=== PATIENT | female | born 1955 | race Caucasian/White ===

== ENCOUNTER 2025-02-18 16:55 | Emergency (ER) | payer OTHER ==
--- OUTSIDE RECORDS SUMMARY | 2025-02-18 16:58 | XMS REPORT | Continuity of Care Document ---
Author Name Unknown Address [address] [facility] [address] [place] [address] [facility] Address [address] [facility] [address] [place] [address] Care Team Providers Care Java Portal Developer Name Role Phone PCP, PATIENT DOES NOT HAVE A Primary Care Physic cyndie Unavailable Janene Stafford Attending Clinician Unavailable Sebastian Mccrary Attending Clinician Unavailable Payers Payer Name Policy Type Policy Number Effective Date [place]pir[id number] 2020 00:00:00 CIGNA C1 [id number] [facility] CIGNA C1 [id number] 2019 00:00:00 [facility] Problems Condition Name Condition Details Condition Category Status Onset Date Resolution Date Last Treatment Date Treating Clinician Comments Source Seasonal allergic rhinitis Allergic rhinitis, seasonal Problem Active [facility] Obesity Obesity, unspecifie d Problem Active [facility] Benign hypertensi on Benign hypertensi on Problem Active [facility] Hyperlipid emia Hyperlipid emia Problem Active [facility] [id number] Vaginal dryness Problem Active [facility] Anxiety Anxiety Problem Active [facility] [id number] Chronic fatigue Problem Active [facility] Allergies, Adverse Reactions, Alerts Allergy Name Allergy Type Status Severity Reaction(s) Onset Date Inactive Date Treating Clinician Comments Source 0 Drug allergy Active Unknown [facility] NO KNOWN ALLERGIE S Drug Class Active [facility] Social History Social Habit Start Date Stop Date Quantity Comments Source History of Tobacco Use [facility] Sex Assigned At [facility] Smoking Status Start Date Stop Date Source Never Smoker [facility] Medications Ordered Medication Name Filled Medication Name Start Date Stop Date Current Medication? Ordering Clinician Indication Dosage Frequency Signature (SIG) Comments Components Source Simvastatin 20 MG Simvastatin 20 MG 8-31 00:00: 00 No 1{table t_in_th e_eveni ng} QD Simvastati n 20 MG Lisinopril- Hydrochloro thiazide 20-25 MG Lisinopril- Hydrochloro thiazide 20-25 MG 3- 00:00: 00 No 1{table t} QD Lisinopril -Hydrochlo rothiazide 20-25 MG Cyanocobala min 1000 MCG/ML Cyanocobala min 1000 MCG/ML 3 00:00: 00 04-13 00:00 :00 No 1{ml} Cyanocobal santiago 1000 MCG/ML Cetaphil Moisturizin g - Cetaphil Moisturizin g - 06-02 00:00: 00 08-01 00:00 :00 No Cetaphil Moisturizi ng - Nystatin-Tr iamcinolone 970237-2.1 UNIT/GM Nystatin-Tr iamcinolone 002182-6.1 UNIT/GM 06-02 00:00: 00 08-01 00:00 :00 No 1{appli cation} BID Nystatin-T riamcinolo ne 992277-0.1 UNIT/GM Cetaphil Moisturizin g - Cetaphil Moisturizin g - 06-02 00:00: 00 08-01 00:00 :00 No Cetaphil Moisturizi ng - Nystatin-Tr iamcinolone 060004-2.1 UNIT/GM Nystatin-Tr iamcinolone [id number] UNIT/GM - 00:00: 00 08-01 00:00 :00 No 1{appli cation} BID Nystatin-T riamcinolo ne 727874-0.1 UNIT/GM Simvastatin 10 MG Simvastatin 10 MG 2019-05 0 00:00: 00 No 1{table t_in_th e_eveni ng} QD Simvastati n 10 MG Simvastatin 10 MG Simvastatin 10 MG 2019-05 0 00:00: 00 No 1{table t_in_th e_eveni ng} QD Simvastati n 10 MG Voltaren Voltaren 12-18 00:00: 00 02-16 00:00 :00 No Arvin Crooks as directed [facility] Flonase Flonase 2018-05 00:00: 00 Yes Arvin Crooks 2 sprays in each nostril [facility] Claritin-D 12 Hour Claritin-D 12 Hour Yes Arvin Crooks 1 tablet as needed [facility] Zestoretic Zestoretic Yes Arvin Crooks 1 tablet [facility] Metoprolol Tartrate Metoprolol Tartrate Yes Arvin Crooks 1 tablet with food [facility] Cortisporin Cortisporin Yes Arvin Magda Crooks 1 applicatio n to affected area [facility] Synthroid Synthroid Yes Arvin Crooks 1 tablet on an empty stomach in the morning [facility] Sertraline HCl Sertraline HCl Yes Arvin Crooks 1 tablet [facility] Hydrochloro thiazide Hydrochloro thiazide Yes Arvin Crooks 1 tablet in the morning [facility] Phentermine HCl Phentermine HCl Yes Arvin Crooks 1 capsule [facility] Hydrochloro thiazide 25 MG Hydrochloro thiazide 25 MG No 1{table t_in_th e_morni ng} QD Hydrochlor othiazide 25 MG Cyanocobala min 1000 MCG/ML Cyanocobala min 1000 MCG/ML No Cyanocobal santiago 1000 MCG/ML Sertraline HCl 50 MG Sertraline HCl 50 MG No 1.5{tab let} QD Sertraline HCl 50 MG Voltaren 1 % Voltaren 1 % No QID Voltaren 1 % Hydrochloro thiazide 12.5 MG Hydrochloro thiazide 12.5 MG No 1{table t_in_ e_morni ng} QD Hydrochlor othiazide 12.5 MG Sertraline HCl 50 MG Sertraline HCl 50 MG No 1{table t} QD Sertraline HCl 50 MG Hydrochloro thiazide 25 MG Hydrochloro thiazide 25 MG No 1{table t_in_ e_morni ng} QD Hydrochlor othiazide 25 MG Vital Signs Vital Name Observation Time Observation Value Comments S ource blood pressure diastolic 2021-01-12 11:40:00 68 mm[Hg] [facility] height 2021-01-12 11:40:00 59 [in_i] Commo n [facility] weight 2021-01-12 11:40:00 139.8 [lb_av] Co [facility] temperature 2021-01-12 11:40:00 98.0 [degF] Com [facility] bmi 2021-01-12 11:40:00 28.23 kg/m2 Comm on [facility] oximetry 2021-01-12 11:40:00 97 % Commo n [facility] respiratory rate 2021-01-12 11:40:00 18 /min [facility] blood pressure systolic 2021-01-12 11:40:00 104 mm[Hg] Common [facility] height 2020-09-28 14:20:00 59 [in_i] Commo n [facility] weight 2020-09-28 14:20:00 146.2 [lb_av] Co [facility] temperature 2020-09-28 14:20:00 97.6 [degF] Com [facility] bmi 2020-09-28 14:20:00 29.53 kg/m2 Comm on [facility] oximetry 2020-09-28 14:20:00 96 % Commo n [facility] respiratory rate 2020-09-28 14:20:00 20 /min Common [facility] blood pressure systolic 2020-09-28 14:20:00 110 mm[Hg] [facility] blood pressure diastolic 2020-09-28 14:20:00 77 mm[Hg] Common [facility] height 2020-08-26 10:40:00 59 [in_i] Commo n [facility] weight 2020-08-26 10:40:00 145 [lb_av] Comm on [facility] bmi 2020-08-26 10:40:00 29.28 kg/m2 Comm on [facility] height 2020-07-17 11:00:00 59 [in_i] Commo n [facility] weight 2020-07-17 11:00:00 147.4 [facility]lb[facility]av[facility] 2020-07-17 11:00:00 98.0 [degF] Com [facility] bmi 2020-07-17 11:00:00 29.77 kg/m2 Comm on [facility] oximetry 2020-07-17 11:00:00 96 % Commo n [facility] respiratory rate 2020-07-17 11:00:00 16 /min [facility] blood pressure systolic 2020-07-17 11:00:00 140 mm[Hg] [facility] blood pressure diastolic 2020-07-17 11:00:00 86 mm[Hg] Common [facility] height 2020-06-02 11:00:00 59 [in_i] Commo n [facility] weight 2020-06-02 11:00:00 147.4 [lb_av] Co [facility] temperature 2020-06-02 11:00:00 98.3 [degF] Com [facility] bmi 2020-06-02 11:00:00 29.77 kg/m2 Comm on [facility] oximetry 2020-06-02 11:00:00 94 % Commo n [facility] respiratory rate 2020-06-02 11:00:00 16 /min Common [facility] blood pressure systolic 2020-06-02 11:00:00 140 mm[Hg] [facility] blood pressure diastolic 2020-06-02 11:00:00 84 mm[Hg] [facility] height 2020-02-06 10:00:00 59 [in_i] Commo n [facility] weight 2020-02-06 10:00:00 148.4 [lb_av] Co mmon [facility] temperature 2020-02-06 10:00:00 97.1 [degF] Com mon [facility] bmi 2020-02-06 10:00:00 29.97 kg/m2 Comm on [facility] oximetry 2020-02-06 10:00:00 98 % Commo n [facility] respiratory rate 2020-02-06 10:00:00 16 /min [facility] blood pressure systolic 2020-02-06 10:00:00 138 mm[Hg] [facility] blood pressure diastolic 2020-02-06 10:00:00 91 mm[Hg] [facility] Encounters Start Date/Time End Date/Time Encounter Type Admission Type Attending Clinicians Care Facility Care Department Encounter ID Source 2022-01-06 15:09:00 Outpatient Janene Stafford [facility] [id number] [facility] 2021-07-08 09:16:00 [place]patient [place] [facility] [id number] [facility] 2021-06-02 12:24:36 Outpatient Janene Stafford [facility] [id number] [facility] 2021-06-02 12:15:51 Outpatient [facility] [id number] [facility] 2021-06-02 11:37:14 Outpatient Sebastian Mccrary [facility] [id number] [facility] 2025-02-16 11:13:00 2025-02-16 12:11:00 Emergency X [facility] ERT [id number] [facility] 2021-01-12 00:00:00 2021-01-12 00:00:00 OFFICE VISIT EST PT LEVEL 3 [facility] [id number] [facility] 2020-12-31 00:00:00 2020-12-31 00:00:00 (TEL) [facility] [id number] [facility] 2020-12-30 00:00:00 2020-12-30 00:00:00 (TEL) [facility] [id number] [facility] 2020-09-28 00:00:00 2020-09-28 00:00:00 OFFICE VISIT EST PT LEVEL 3 [facility] [id number] [facility] 2020-09-04 00:00:00 2020-09-04 00:00:00 (TEL) [facility] [id number] [facility] 2020-08-31 00:00:00 2020-08-31 00:00:00 (TEL) [facility] [id number] [facility] 2020-08-26 00:00:00 2020-08-26 00:00:00 OFFICE VISIT EST PT LEVEL 3 [facility] [id number] [facility] 2020-07-17 00:00:00 2020-07-17 00:00:00 OFFICE VISIT EST PT LEVEL 3 [facility] [id number] [facility] 2020-06-02 00:00:00 2020-06-02 00:00:00 OFFICE VISIT ESTAB PT LEVEL 4 [facility] [id number] [facility] 2020-06-02 00:00:00 2020-06-02 00:00:00 (TEL) [facility] [id number] [facility] 2020-02-06 00:00:00 2020-02-06 00:00:00 OFFICE VISIT EST PT LEVEL 3 [facility] [id number] [facility] 2019-12-27 16:03:00 2019-12-27 16:03:00 Outpatient [facility] [id number] [facility] 2019-12-19 09:00:00 2019-12-19 09:00:00 Outpatient [facility] [id number] [facility] 2019-03-07 11:20:00 2019-03-07 11:20:00 Outpatient [facility] [id number] [facility]
[2025-02-18] MEDS ORDERED: HYDROCODONE/APAP 7.5/325 MG TAB ONE (17:25)
--- NOTE | 2025-02-18 18:05 | RAD REPORT ---
Procedure: Chest Single View HISTORY: Chest pain COMPARISON: none FINDINGS: The lungs appear clear of acute infiltrate. No significant pleural effusion noted. The heart is normal size. IMPRESSION: No acute abnormality is displayed.
--- NOTE | 2025-02-18 18:06 | RAD REPORT ---
EXAM:Ribs Right CLINICAL HISTORY: Right rib pain FINDINGS: No fracture seen
--- NOTE | 2025-02-18 18:20 | EDPHYS ---
Physician Documentation [facility] Name: Dalila Monroy Age: 69 yrs Sex: Female : 1955 Arrival Date: 02/18/2025 Time: 16:55 Bed 24 Private MD: ED Physician Brayden Valero HPI: 02/18 19:02 This 69 yrs old Female presents to ER via Ambulatory with complaints of Rib pain. kb 19:02 Patient is a 69-year-old female who presents for right lower rib pain that started kb yesterday. States she missed a step while walking in [place] and fell onto her right side onto the brick ground. Denies any other pain or injury at this time.. Historical: - Allergies: 17:11 Sulfa (Sulfonamide Antibiotics); db - PMHx: 17:11 Hypertensive disorder; Hypercholesterolemia; HEARING IMPAIRED; Anxiety; db - PSHx: 17:11 RIGHT LEG; db - Immunization history:: Adult Immunizations unknown. - Infectious Disease History:: Denies. - Social history:: Smoking status: Patient denies any tobacco usage or history of. ROS: 19:00 Constitutional: As per HPI kb Exam: 19:00 Constitutional: This is a well developed, well nourished patient who is awake, alert, kb and in no acute distress. Head/Face: Normocephalic, atraumatic. ENT: Moist Mucous membranes Cardiovascular: Regular rate Respiratory: Respirations even and unlabored. No increased work of breathing. Talking in full sentences Skin: Warm, dry with normal turgor. Normal color. MS/ Extremity: Pulses equal, no cyanosis. Neurovascular intact. Full, normal range of motion. Neuro: Awake and alert, GCS 15, oriented to person, place, time, and situation. 19:00 Chest/axilla: Inspection: normal, Palpation: tenderness, that is moderate, of the right breast, that totally reproduces the patient's complaints, Vital Signs: 17:08 BP 154 / 106; Pulse 86; Resp 18; Temp 97.5; Pulse Ox 95% ; Weight 74.84 kg; Height 4 db ft. 11 in. ; 18:03 BP 133 / 95; Pulse 73; Resp 18; Pulse Ox 94% on R/A; Pain 7/10; rg5 17:08 Body Mass Index 33.33 (74.84 kg, 149.86 cm) db 18:03 Pain Scale: Adult rg5 MDM: 17:00 Medical Screening Exam initiated kb 19:00 Differential diagnosis: contusion, fracture, pneumothorax. Data reviewed: vital signs, kb nurses notes. Independent interpretation of the following test(s) in the Emergency Department X-Ray: My interpretation is no pneumothorax. Historians other than the Patient: Daughter/Son: daughter. Counseling: I had a detailed discussion with the patient and/or guardian regarding the historical points, exam findings, and any diagnostic results supporting the discharge/admit diagnosis, radiology results, the need for outpatient follow up, a family practitioner, to return to the emergency department if symptoms worsen or persist or if there are any questions or concerns that arise at home. 02/18 17:06 Order name: Chest Single View XRAY; Complete Time: 18:15 kb 02/18 17:06 Order name: Ribs Right XRAY; Complete Time: 18:15 kb Administered Medications: 17:26 Drug: Hydrocodone-Acetaminophen PO (7.5 mg-325 mg) 1 tabs PO once Route: PO; db Disposition Summary: 02/18/25 18:20 Discharge Ordered Notes: Location: Home kb Condition: Stable kb Diagnosis - Chest pain, unspecified - chest wall pain, right lower ribs kb Followup: kb - With: Emergency Department - When: As needed - Reason: Worsening of condition Followup: kb - With: Private Physician - When: 2 - 3 days - Reason: Recheck today's complaints, Continuance of care, Re-evaluation by your physician Discharge Instructions: - Discharge Summary Sheet kb - Rib Contusion kb - Chest Contusion, Adult, [id number] kb - Nonspecific Chest Pain, Adult, [id number] kb Forms: - Medication Reconciliation Form kb - Antibiotic Education kb - Prescription Opioid Use kb - Patient Portal Instructions kb - Leadership Thank You Letter kb Prescriptions: - Diclofenac Sodium 75 mg Oral tablet, delayed release (enteric coated) - take 1 tablet ORAL route 2 times per day As needed; 30 tablet; Refills: 0, kb Product Selection Permitted - orphenadrine citrate 100 mg Oral Tablet Sustained Release - take 1 tablet ORAL route 2 times per day As needed; 20 tablet; Refills: 0, kb Product Selection Permitted Signatures: Dispatcher [employer] Jessi Calabrese FNP-C FNP-Kenn Lolis Miranda, RN RN db Corrections: (The following items were deleted from the chart) 17: 17:07 Chest Single View+RAD.RAD.BRZ ordered. EDMS EDMS 17: 17:07 Ribs Right+RAD.RAD.BRZ ordered. EDMS EDMS 17:12 17:11 Allergies: No Known Allergies; db db
--- NOTE | 2025-02-18 18:20 | ER ---
Nurse's Notes [facility] Name: Dalila Monroy Age: 69 yrs Sex: Female : 1955 Arrival Date: 02/18/2025 Time: 16:55 Bed 24 Private MD: Diagnosis: Chest pain, unspecified-chest wall pain, right lower ribs Presentation: 02/18 17:08 Chief complaint: Patient states: FELL MONDAY RIGHT RIB PAIN. STATES PAIN IS GRADUALLY db GETTING WORSE. Coronavirus screen: Client denies travel out of the [place] in the last 14 days. At this time, the client does not indicate any symptoms associated with coronavirus-19. Ebola Screen: Patient negative for fever greater than or equal to 101.5 degrees Fahrenheit, and additional compatible Ebola Virus Disease symptoms Patient denies exposure to infectious person. Patient denies travel to an Ebola-affected area in the 21 days before illness onset. No symptoms or risks identified at this time. Initial Sepsis Screen: Does the patient meet any 2 criteria? No. Patient's initial sepsis screen is negative. Does the patient have a suspected source of infection? No. Patient's initial sepsis screen is negative. Risk Assessment: Do you want to hurt yourself or someone else? Patient reports no desire to harm self or others. Onset of symptoms was February 16, 2025. 17:08 Method Of Arrival: Ambulatory db 17:08 Acuity: ORQUIDEA 3 db Triage Assessment: 17:11 General: Appears in no apparent distress. uncomfortable, Behavior is calm, cooperative. db Pain: Complains of pain in RIGHT RIB. Neuro: Level of Consciousness is awake, alert, obeys commands, Oriented to person, place, time, situation. Respiratory: Airway is patent Respiratory effort is even, unlabored, Respiratory pattern is regular, symmetrical. Historical: - Allergies: 17:11 Sulfa (Sulfonamide Antibiotics); db - PMHx: 17:11 Hypertensive disorder; Hypercholesterolemia; HEARING IMPAIRED; Anxiety; db - PSHx: 17:11 RIGHT LEG; db - Immunization history:: Adult Immunizations unknown. - Infectious Disease History:: Denies. - Social history:: Smoking status: Patient denies any tobacco usage or history of. Screenin:27 [facility] ED Fall Risk Assessment (Adult) History of falling in the last 3 months, db including since admission No falls in past 3 months (0 pts) Confusion or Disorientation No (0 pts) Intoxicated or Sedated No (0 pts) Impaired Gait No (0 pts) Mobility Assist Device Used No (0 pt) Altered Elimination No (0 pt) Score/Fall Risk Level 0 - 2 = Low Risk Oriented to surroundings, Maintained a safe environment. Abuse screen: Denies threats or abuse. Denies injuries from another. Nutritional screening: No deficits noted. Tuberculosis screening: No symptoms or risk factors identified. Assessment: 17:27 Reassessment: Patient appears in no apparent distress at this time. Patient and/or db family updated on plan of care and expected duration. Pain level reassessed. Patient is alert, oriented x 3, equal unlabored respirations, skin warm/dry/pink. General: Appears in no apparent distress. Behavior is calm, cooperative. Neuro: Level of Consciousness is awake, alert, obeys commands, Oriented to person, place, time, situation. 18:05 General: Appears uncomfortable, Behavior is calm. Pain: Complains of pain in right rg5 upper quadrant Quality of pain is described as aching. Neuro: Oriented to person, place, time, situation. Cardiovascular: Denies chest pain. Respiratory: Reports pain with movement Airway is patent Respiratory effort is even, unlabored. GI: Abdomen is round non-distended. : No signs and/or symptoms were reported regarding the genitourinary system. EENT: No signs and/or symptoms were reported regarding the EENT system. Derm: No signs and/or symptoms reported regarding the dermatologic system. Musculoskeletal: Circulation, motion, and sensation intact. Range of motion: intact in all extremities. Vital Signs: 17:08 BP 154 / 106; Pulse 86; Resp 18; Temp 97.5; Pulse Ox 95% ; Weight 74.84 kg; Height 4 db ft. 11 in. ; 18:03 BP 133 / 95; Pulse 73; Resp 18; Pulse Ox 94% on R/A; Pain 7/10; rg5 17:08 Body Mass Index 33.33 (74.84 kg, 149.86 cm) db 18:03 Pain Scale: Adult rg5 ED Course: 16:58 Patient arrived in ED. im 16:59 Jessi Talamantes FNP-C [facility] kb 16:59 Brayden Valero MD is Attending Physician. kb 17:10 Triage completed. db 17:11 Arm band placed on. db 17:27 Patient has correct armband on for positive identification. db 17:45 Chest Single View XRAY In Process Unspecified. EDMS 17:45 Ribs Right XRAY In Process Unspecified. EDMS 17:55 Jeff May, RN is Primary Nurse. rg5 18:05 Door closed. Noise minimized. rg5 18:05 No provider procedures requiring assistance completed. rg5 18:37 Patient did not have IV access during this emergency room visit. iw Administered Medications: 17:26 Drug: Hydrocodone-Acetaminophen PO (7.5 mg-325 mg) 1 tabs PO once Route: PO; db Medication: 17:27 VIS not applicable for this client. db Outcome: 18:20 Discharge ordered by MD. kb 18:36 Discharged to home ambulatory, with family, iw 18:36 Condition: good 18:36 Discharge instructions given to patient, Instructed on discharge instructions, follow up and referral plans. medication usage, Demonstrated understanding of instructions, follow-up care, medications, Prescriptions given X 2, 18:37 Patient left the ED. iw Signatures: Dispatcher [employer] EDRI Jessi Talamantes, NURSE ADMINISTRATOR-C NURSE ADMINISTRATOR-CkJayde York RN RN iw Lolis Miranda, RN RN db Cherelle Carter Jeff May, RN RN rg5 Corrections: (The following items were deleted from the chart) 17:12 17:11 Allergies: No Known Allergies; db db 17:28 17:27 Warm blanket given. Pillow given. db db
[2025-02-19 02:30] VITALS: TEMP 97.5
[2025-02-19 02:32] VITALS: BP 133/95; O2SAT 94
== END 2025-02-18 18:37 | disposition home or self-care (01) ==
LOC: ER 16:55
DX: R07.89 Other chest pain (principal); R07.81 Pleurodynia; I10 Essential (primary) hypertension
CPT/HCPCS: 71045; 99283